=== PATIENT | female | born 1930 | race Caucasian/White ===

== ENCOUNTER 2017-02-25 17:07 | Emergency (ER) | payer MEDICARE, BC ==
[2017-02-25] MEDS ORDERED: Aspirin 81 MG Tab.Chew PO ONE (17:32)
[2017-02-25 19:42] VITALS: BP 157/88
--- NOTE | 2017-03-01 08:12 | ER ---
Date of Service: 02/25/2017 SUBJECTIVE: The patient presents to the emergency room with complaints of resolved substernal chest pain. The patient states that she has been under increased stress and took a 0.25 mg alprazolam tablet approximately 2 hours prior to coming in to the emergency room. She states that she waited approximately 1 hour after taking the alprazolam and took 3 nitroglycerin. She states that shortly after she had taken the above medications, her discomfort had resolved. She characterizes the discomfort as a chest tightness. She states that it goes across the entirety of her chest. She states that she has been tearful and has been under increased stress because her daughter is going to cancer treatment. PAST MEDICAL HISTORY: 1. History of atypical chest pain in the past. 2. Hypertension. 3. Dyslipidemia. 4. History of coronary artery disease. 5. History of pacemaker. MEDICATIONS: 1. Imdur. 2. Multivitamin. 3. Aspirin. 4. Alprazolam. 5. Simvastatin. 6. Benazepril. 7. Amlodipine. 8. Carvedilol. 9. Hydrochlorothiazide. ALLERGIES: NKDA. REVIEW OF SYSTEMS: General: No fever or chills. HEENT: No sore throat, rhinorrhea, or congestion. Respiratory: No shortness breath. Cardiac: Please see history of present illness. She denies any jaw, arm, neck, or back pain. No palpitations. Gastrointestinal: No nausea, vomiting, or diarrhea. No melena, hematochezia, or hematemesis. Genitourinary: Denies any dysuria. Musculoskeletal: No myalgias or arthralgias. PHYSICAL EXAMINATION: General: This is an 86-year-old female patient, who is in no acute distress. Vital Signs: Blood pressure is 157/88, pulse rate is 65, respiratory rate is 16, O2 saturations 98%, temp is 37.1. Skin: Warm, pink, and dry. HEENT: Head is normocephalic, atraumatic. Mouth, oral mucosa is moist. Lungs: Clear to auscultation. Heart: Regular rate and rhythm. Abdomen: Soft, nontender. There is no hepatosplenomegaly or masses noted. Extremities: Without edema. Neurologic: She is alert and oriented. Answers all questions appropriately. IMAGING: EKG shows paced rhythm without any acute ST or T-wave abnormalities. LABORATORY DATA: WBCs 5.8, hemoglobin is 13.2, platelets are 167. PT is 10.5, INR is 0.9. Chemistry; comprehensive metabolic panel was obtained; with the exception of elevated BUN at 21, was within normal limits. CK was 57, troponin is 0.01. ProBNP elevated at 680. ASSESSMENT: Atypical chest pain. PLAN: The patient was instructed to take her alprazolam twice daily while she is dealing with the stress of her daughter. I did suggest admission to her on observation status to obtain serial troponin on the patient but she refused. She is to return if she develops any worsening chest discomfort, shortness of breath, or other worrisome signs or symptoms. All questions were answered. MWK: 02/28/2017 06:29:16 MODL: 02/28/2017 11:35:03 /[id number]
== END 2017-02-25 18:45 | disposition home or self-care (01) ==
LOC: VM.ED 17:07
DX: R07.89 Other chest pain (principal); Z73.3 Stress, not elsewhere classified; E78.5 Hyperlipidemia, unspecified; I10 Essential (primary) hypertension; I25.10 Atherosclerotic heart disease of native coronary artery without angina pectoris; Z95.0 Presence of cardiac pacemaker; Z79.899 Other long term (current) drug therapy; Z79.82 Long term (current) use of aspirin
CPT/HCPCS: 36415; 71020; 80053; 82550; 83880; 84484; 85025; 85610; 93005; 99285; A9270; 99284-GF

== ENCOUNTER → 2017-03-30 | Day surgery (SDC) | payer MEDICARE, BC ==
[~2017-03-30] MED LIST: Balanced Salt Solution Ophth Irrig 500 ML Bottle IOCULAR ONE; Brimonidine 0.2% Ophth Soln 5 ML Bottle ONE; Cataract Ophth Solution EYERT PRN; Chondroitin Sulfate/Hyaluronate Sodium Ophth Inj 0.5 ML Syringe IOCULAR ONE; Ciprofloxacin 0.3% Ophth Soln 2.5 ML Bottle EYERT ONE; Hypromellose 2.5% Ophth Soln 15 ML Bottle EYERT PRN; Lidocaine 1% 2 ML ONE; Lidocaine 1% PF 2 ML SDV INFILT ONE; Lidocaine 3.5% Ophth Gel 1 ML Bottle ONE; Povidone-Iodine 5% Sterile Ophth Soln 30 ML Bottle ONE; Sodium Chloride 0.9% 10 ML Syringe FLUSH PRN; Vancomycin 500 MG SDV EYERT ONE
[2017-03-30] MEDS: Proparacaine 0.5% Ophth Soln 15 ML Bottle EYERT PRN ×2 (15:54→17:12)
[2017-03-30 17:31] VITALS: BP 166/69
--- NOTE | 2017-03-30 23:10 | OR ---
PREOPERATIVE DIAGNOSIS: Senile nuclear cataract, right eye. POSTOPERATIVE DIAGNOSIS: Pseudophakia, right eye. PROCEDURE PERFORMED: Cataract extraction with intraocular lens implantation by phacoemulsification technique, right eye. ANESTHESIA: Topical anesthesia. BLOOD LOSS: None. COMPLICATIONS: None. INDICATIONS: The patient is an 86-year-old female, who was found to have a senile nuclear cataract, reducing her best corrected visual acuity. After explaining the risks, benefits, and alternatives of cataract surgery, an informed consent was obtained. DESCRIPTION OF PROCEDURE: After identifying the patient in the preoperative area, the patient was brought to the operating room. The patient was prepped and draped in a sterile fashion. A lid speculum was inserted into the eye. The microscope was brought into the field. Lidocaine gel was applied to the external surface of the eye. A paracentesis was made 3 clock hours away from the surgeon's operating hand. The anterior chamber was anesthetized with preservative-free Lidocaine. The anterior chamber was filled with Viscoat. A clear corneal incision was made at the 180-degree meridian with a 2.75mm keratome. A continuous tear circular capsulorrhexis was performed. The nucleus was hydrodissected with balanced salt solution. The nucleus was sculpted and removed from the eye using a divide and conquer technique with the phacoemulsification handpiece. The residual viscoelastic was removed with the I/A handpiece. The anterior chamber and capsular bag were filled with Amvisc. An GABRIEL lens, model ZCB00 with a power of 19.0 diopters and a serial number of [id number] was injected into the capsular bag. The lens was rotated completely into the capsular bag with a Sinskey hook. The residual viscoelastic was removed with the I/A handpiece. The anterior chamber was filled with balanced salt solution to a physiologic pressure. The corneal wound was closed with stromal hydration and seen to be water tight by Weck-Paty sponge testing. The patient received a drop of Zymar and Alphagan at the end of the case. There were no complications of this case. The patient will be followed postoperatively by Dr. Leatha Brock. SKA: 03/30/2017 17:30:30 MODL: 03/30/2017 23:05:25 /[id number]
== END ==
LOC: VM.SDS 15:28
PROVIDERS: ATTEND Ophthalmology
DX: H25.11 Age-related nuclear cataract, right eye (principal); Z96.1 Presence of intraocular lens; I10 Essential (primary) hypertension; F41.9 Anxiety disorder, unspecified; E78.5 Hyperlipidemia, unspecified; Z96.641 Presence of right artificial hip joint; Z88.8 Allergy status to other drugs, medicaments and biological substances; Z90.49 Acquired absence of other specified parts of digestive tract; Z98.890 Other specified postprocedural states; I25.810 Atherosclerosis of coronary artery bypass graft(s) without angina pectoris; Z95.0 Presence of cardiac pacemaker; Z79.899 Other long term (current) drug therapy; E16.2 Hypoglycemia, unspecified
CPT/HCPCS: 00142; 66984; A9270; C1780; J3370

== ENCOUNTER 2017-12-07 18:30 | Emergency (ER) | payer MEDICARE, BC ==
[2017-12-07] MEDS: Take Home: Nitrofurantoin Monohydrate/Macrocrystalline 100 MG, 2 Cap Pack PO ONE (19:25)
[2017-12-08 00:54] VITALS: BP 128/72
--- NOTE | 2017-12-14 06:25 | EDM.PDOC ---
ED HPI GENERAL MEDICAL PROBLEM - General Chief Complaint: Allergic Reaction Stated Complaint: Itching, hives, drug reaction Time Seen by Provider: 12/07/17 19:10 Source of Information: Reports: Patient History Limitations: Reports: No Limitations - History of Present Illness INITIAL COMMENTS - FREE TEXT/NARRATIVE: Pt. states that she developed onset of rash and urticaria to her extremities and torso after starting bactrim DS for UTI. States that she is not experiencing any throat tightness. dyspnea. She states that she is not experiencing any nausea/vomiting/diarrhea. - Related Data Allergies Allergy/AdvReac Type Severity Reaction Status Date / Time potassium Allergy Hives Verified 10/11/17 19:33 Sulfa (Sulfonamide Allergy Itching Verified 12/08/17 00:55 Antibiotics) Home Meds: Home Meds ALPRAZolam [Xanax] 0.25 mg PO BID PRN 06/24/14 [History] Benazepril HCl [Benazepril HCl] 20 mg PO DAILY 06/24/14 [History] Carvedilol [Carvedilol] 3.125 mg PO BID 06/24/14 [History] Hydrochlorothiazide [Hydrochlorothiazide] 50 mg PO DAILY 06/24/14 [History] Multivitamin [Multi Vitamin Daily] 1 each PO DAILY 06/24/14 [History] Nitroglycerin [Nitrostat] 0.4 mg SL ASDIRECTED PRN 06/24/14 [History] amLODIPine Besylate [Amlodipine Besylate] 5 mg PO DAILY 06/24/14 [History] Aspirin [[place] Aspirin] 81 mg PO DAILY 02/25/17 [History] Isosorbide Mononitrate [Imdur] 30 mg PO DAILY 02/25/17 [History] Simvastatin [Simvastatin] 40 mg PO BEDTIME 02/25/17 [History] Acetaminophen [Tylenol] 650 mg PO Q4H 03/28/17 [History] Amoxicillin 2,000 mg PO ASDIRECTED 03/28/17 [History] Past Medical History HEENT History: Reports: Cataract Cardiovascular History: Reports: CAD, High Cholesterol, Hypertension, Pacemaker , Other (See Below) Other Cardiovascular History: 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 Respiratory History: Reports: None Gastrointestinal History: Reports: Colon Polyp Genitourinary History: Reports: None, Other (See Below) Other Genitourinary History: Recent UTI Musculoskeletal History: Reports: Back Pain, Chronic Neurological History: Reports: Other (See Below) Other Neuro History: global amnesia Psychiatric History: Reports: Anxiety, Other (See Below) Other Psychiatric History: RLS Endocrine/Metabolic History: Reports: Other (See Below) Other Endocrine/Metabolic History: hyperglycemia Hematologic History: Reports: None Immunologic History: Reports: None Oncologic (Cancer) History: Reports: None Dermatologic History: Reports: None - Past Surgical History Cardiovascular Surgical History: Reports: Coronary Artery Stent GI Surgical History: Reports: Appendectomy, Colonoscopy Musculoskeletal Surgical History: Reports: Hip Replacement Oncologic Surgical History: Reports: None Social & Family History - Tobacco Use Smoking Status *Q: Never Smoker - Alcohol Use Days Per Week of Alcohol Use: 0 - Recreational Drug Use Recreational Drug Use: No Drug Use in Last 12 Months: No ED ROS ALLERGIC REACTION - Review of Systems Review Of Systems: See Below Constitutional: Reports: No Symptoms HEENT: Reports: No Symptoms Respiratory: Reports: No Symptoms Cardiovascular: Reports: No Symptoms Endocrine: Reports: No Symptoms GI/Abdominal: Reports: No Symptoms : Reports: No Symptoms Musculoskeletal: Reports: No Symptoms Skin: Reports: Pruritis, Rash, Erythema, Urticaria Neurological: Reports: No Symptoms Psychiatric: Reports: No Symptoms Hematologic/Lymphatic: Reports: No Symptoms Immunologic: Reports: No Symptoms ED EXAM GENERAL NO PERIP PULSE - Physical Exam Exam: See Below Exam Limited By: No Limitations General Appearance: Alert, WD/WN, No Apparent Distress Nose: Normal Inspection, Normal Mucosa, No Blood Throat/Mouth: Normal Inspection, Normal Lips, Normal Teeth, Normal Gums, Normal Oropharynx, Normal Voice, No Airway Compromise Head: Atraumatic, Normocephalic Neck: Normal Inspection, Supple, Non-Tender, Full Range of Motion Respiratory/Chest: No Respiratory Distress, Lungs Clear, Normal Breath Sounds, No Accessory Muscle Use, Chest Non-Tender Cardiovascular: Normal Peripheral Pulses, Regular Rate, Rhythm, No Edema, No Gallop, No JVD, No Murmur, No Rub GI/Abdominal: Normal Bowel Sounds, Soft, Non-Tender, No Organomegaly, No Distention, No Abnormal Bruit, No Mass Extremities: Normal Inspection, Normal Range of Motion, Non-Tender, Normal Capillary Refill, No Pedal Edema Course - Vital Signs Last Recorded V/S: Last Vital Signs Temp 36.1 C 12/07/17 19:05 Pulse 60 12/07/17 19:05 Resp 20 12/07/17 19:05 BP 128/72 12/07/17 19:05 Pulse Ox 97 12/07/17 19:05 - Orders/Labs/Meds Meds: Medications Discontinued Medications Generic Name Dose Route Start Last Admin Trade Name Freq PRN Reason Stop Dose Admin Nitrofurantoin Macrocrystals 1 packet 12/07/17 19:24 12/07/17 19:25 Take Home: Nitrofur [place]/Ma 100 Mg, 2 Pack PO 12/07/17 19:25 1 packet ONETIME ONE Administration Departure - Departure Time of Disposition: 19:05 Disposition: Home, Self-Care 01 Condition: Good Clinical Impression: Allergic reaction - Discharge Information Instructions: Urinary Tract Infection, Adult, [id number] Referrals: Ally Geronimo MD [Primary Care Provider] - Forms: ED Department Discharge Additional Instructions: Macrobid 1 tab twice daily until gone (7 days) Make sure to take all of the antibiotic Drink plenty of fluids
== END 2017-12-07 19:35 | disposition home or self-care (01) ==
LOC: VM.ED 18:30
DX: L50.0 Allergic urticaria (principal); T37.0X5A Adverse effect of sulfonamides, initial encounter; I10 Essential (primary) hypertension; I25.10 Atherosclerotic heart disease of native coronary artery without angina pectoris; E78.00 Pure hypercholesterolemia, unspecified; Z88.2 Allergy status to sulfonamides; Z88.8 Allergy status to other drugs, medicaments and biological substances; Z79.82 Long term (current) use of aspirin; Z79.899 Other long term (current) drug therapy
CPT/HCPCS: 99283; 99283-GF; A9270-GY

== ENCOUNTER 2018-11-15 18:31 | Emergency (ER) | payer MEDICARE, BC ==
[2018-11-15] MEDS ORDERED: Ondansetron 4 MG Tab.DIS PO ONE (19:07)
[2018-11-15 19:25] VITALS: BP 151/60
[2018-11-15 19:58] LABS: CHLORIDE,CL 104 mmol/L (98-107); SODIUM,NA 142 mmol/L (136-145)
[2018-11-15 20:00] LABS: ANION GAP 12.2 mmol/L (10-20)
[2018-11-15] MEDS ORDERED: Take Home: Ondansetron 4 MG Tab.DIS, 2 Tab Pack PO ONE (20:36)
--- NOTE | 2018-11-16 09:07 | EDM.PDOC ---
ED HPI GENERAL MEDICAL PROBLEM - General Chief Complaint: Gastrointestinal Problem Stated Complaint: vomiting, abdominal pain Time Seen by Provider: 11/15/18 18:50 Source of Information: Reports: Patient History Limitations: Reports: No Limitations - History of Present Illness INITIAL COMMENTS - FREE TEXT/NARRATIVE: Pt. presents to ER with complaints of nausea and vomiting that started last evening. Pt. states that she had gone out to eat. She states that she vomited 3 times in the night. She has not vomited and has not had any diarrhea during the day. Pt. states that she is having a pacemaker placed and is concerned that she is still nauseated. No fever or chills. No chest pain or shortness of breath. Her only complaint is that of nausea. Onset Date: 11/15/18 Location: Reports: Abdomen Associated Symptoms: Reports: Nausea/Vomiting epigastric, LUQ abdomen Pain Score (Numeric/FACES): 3 - Related Data Allergies Allergy/AdvReac Type Severity Reaction Status Date / Time potassium Allergy Hives Verified 11/15/18 19:25 Sulfa (Sulfonamide Allergy Itching Verified 11/15/18 19:25 Antibiotics) Home Meds: Home Meds ALPRAZolam [Xanax] 0.25 mg PO BID PRN 06/24/14 [History] Benazepril HCl 20 mg PO DAILY 06/24/14 [History] Carvedilol 3.125 mg PO BID 06/24/14 [History] Hydrochlorothiazide 50 mg PO DAILY 06/24/14 [History] Multivitamin [Multi Vitamin Daily] 1 each PO DAILY 06/24/14 [History] Nitroglycerin [Nitrostat] 0.4 mg SL ASDIRECTED PRN 06/24/14 [History] amLODIPine Besylate [Amlodipine Besylate] 5 mg PO DAILY 06/24/14 [History] Aspirin [Young Aspirin EC] 81 mg PO DAILY 02/25/17 [History] Isosorbide Mononitrate [Imdur] 30 mg PO DAILY 02/25/17 [History] Simvastatin 40 mg PO BEDTIME 02/25/17 [History] Acetaminophen [Tylenol] 650 mg PO Q4H 03/28/17 [History] Amoxicillin 2,000 mg PO ASDIRECTED 03/28/17 [History] Past Medical History HEENT History: Reports: Cataract Cardiovascular History: Reports: CAD, High Cholesterol, Hypertension, Pacemaker , Other (See Below) Other Cardiovascular History: 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 Respiratory History: Reports: None Gastrointestinal History: Reports: Colon Polyp Genitourinary History: Reports: None, Other (See Below) Other Genitourinary History: Recent UTI Musculoskeletal History: Reports: Back Pain, Chronic Neurological History: Reports: Other (See Below) Other Neuro History: global amnesia Psychiatric History: Reports: Anxiety, Other (See Below) Other Psychiatric History: RLS Endocrine/Metabolic History: Reports: Other (See Below) Other Endocrine/Metabolic History: hyperglycemia Hematologic History: Reports: None Immunologic History: Reports: None Oncologic (Cancer) History: Reports: None Dermatologic History: Reports: None - Past Surgical History Cardiovascular Surgical History: Reports: Coronary Artery Stent GI Surgical History: Reports: Appendectomy, Colonoscopy Musculoskeletal Surgical History: Reports: Hip Replacement Oncologic Surgical History: Reports: None ED ROS GENERAL - Review of Systems Review Of Systems: See Below Constitutional: Reports: No Symptoms HEENT: Reports: No Symptoms Respiratory: Reports: No Symptoms Cardiovascular: Reports: No Symptoms Endocrine: Reports: No Symptoms GI/Abdominal: Reports: Nausea : Reports: No Symptoms Musculoskeletal: Reports: No Symptoms Skin: Reports: No Symptoms Neurological: Reports: No Symptoms Psychiatric: Reports: No Symptoms Hematologic/Lymphatic: Reports: No Symptoms Immunologic: Reports: No Symptoms ED EXAM, GENERAL - Physical Exam Exam: See Below Exam Limited By: No Limitations General Appearance: Alert, WD/WN, No Apparent Distress Throat/Mouth: Normal Inspection, Normal Lips, Normal Teeth, Normal Gums, Normal Oropharynx, Normal Voice, No Airway Compromise Head: Atraumatic, Normocephalic Neck: Normal Inspection, Supple, Non-Tender, Full Range of Motion Respiratory/Chest: No Respiratory Distress, Lungs Clear, Normal Breath Sounds, No Accessory Muscle Use, Chest Non-Tender Cardiovascular: Normal Peripheral Pulses, Regular Rate, Rhythm, No Edema, No Gallop, No JVD, No Murmur, No Rub GI/Abdominal: Normal Bowel Sounds, Soft, Non-Tender, No Organomegaly, No Distention, No Abnormal Bruit, No Mass (Female) Exam: Deferred Rectal (Female) Exam: Deferred Extremities: Normal Inspection, Normal Range of Motion, Non-Tender, Normal Capillary Refill, No Pedal Edema Neurological: Alert, Oriented, CN II-XII Intact, Normal Cognition, Normal Gait, Normal Reflexes, No Motor/Sensory Deficits Course - Vital Signs Last Recorded V/S: Last Vital Signs Temp 36.9 C 11/15/18 18:45 Pulse 64 11/15/18 18:45 Resp 16 11/15/18 18:45 BP 151/60 H 11/15/18 18:45 Pulse Ox 94 L 11/15/18 18:45 - Orders/Labs/Meds Labs: Laboratory Tests 11/15/18 11/15/18 Range/Units 19:25 19:30 WBC 5.3 (4.0-10.0) x10^3/uL RBC 4.37 (4.00-5.50) x10^6/uL Hgb 13.3 (12.0-16.0) g/dL Hct 39.9 (33.0-47.0) % MCV 91.3 (78.0-93.0) fL MCH 30.4 (26.0-32.0) pg MCHC 33.3 (32.0-36.0) g/dL RDW Coeff of Donaldo 12.9 (10.0-15.0) % Plt Count 172 (130-400) x10^3/uL Neut % (Auto) 84.4 H (50.0-80.0) % Lymph % (Auto) 7.1 L (25.0-50.0) % [place] % (Auto) 8.3 (2.0-11.0) % Eos % (Auto) 0.2 (0.0-4.0) % Baso % (Auto) 0.0 L (0.2-1.2) % Sodium 142 (136-145) mmol/L Potassium 3.2 L (3.5-5.1) mmol/L Chloride 104 (98-107) mmol/L Carbon Dioxide 29 (21-32) mmol/L Anion Gap 12.2 (10-20) mmol/L BUN 33 H (7-18) mg/dL Creatinine 1.0 (0.55-1.02) mg/dL Est Cr Clr Drug Dosing TNP Estimated GFR (MDRD) 52 Glucose 120 H (74-106) mg/dL Calcium 9.3 (8.5-10.1) mg/dL Corrected Calcium 9.78 (8.5-10.1) mg/dL Total Bilirubin 0.7 (0.2-1.0) mg/dL AST 17 (15-37) U/L ALT 20 (14-59) U/L Alkaline Phosphatase 109 (46-116) U/L Total Protein 6.7 (6.4-8.2) g/dL Albumin 3.4 (3.4-5.0) g/dL Globulin 3.3 Albumin/Globulin Ratio 1.03 Meds: Medications Discontinued Medications Generic Name Dose Route Start Last Admin Trade Name Freq PRN Reason Stop Dose Admin Ondansetron HCl 4 mg 11/15/18 19:07 11/15/18 19:28 Zofran Odt PO 11/15/18 19:08 4 mg ONETIME ONE Administration Ondansetron HCl 1 packet 11/15/18 20:36 11/15/18 20:36 Take Home: Ondansetron Odt 4 Mg, 2 Tab Pack PO 11/15/18 20:37 1 packet ONETIME ONE Administration Departure - Departure Time of Disposition: 20:42 Disposition: Home, Self-Care 01 Clinical Impression: Gastroenteritis - Discharge Information Instructions: Viral Gastroenteritis, Adult Referrals: Ally Geronimo MD [Primary Care Provider] - Forms: ED Department Discharge Additional Instructions: Home to rest. Follow-up with primary care provider in next 10-14 days for recheck. - Assessment/Plan Plan: Pt. was given 4 mg zofran ODT which helped the nausea completely. Home to rest. Follow-up with primary care provider in next 10-14 days for recheck.
== END 2018-11-15 20:42 | disposition home or self-care (01) ==
LOC: VM.ED 18:31
DX: K52.9 Noninfective gastroenteritis and colitis, unspecified (principal); I10 Essential (primary) hypertension; Z88.2 Allergy status to sulfonamides; Z79.899 Other long term (current) drug therapy
CPT/HCPCS: 36415; 80053; 85025; 99283; A9270